=== PATIENT | female | born 1965 | race Caucasian/White ===

== ENCOUNTER 2017-03-15 01:06 | Emergency (ER) | payer OTHER ==
[~2017-03-15] VITALS: Ht 162.6 cm; Wt 122.5 kg
[~2017-03-15 01:06] MED LIST: DARVOCET PO; ULTRACET TABLET1 TAB PO
[2017-03-15 01:51] LABS: ABSOLUTE NEUTROPHILS 5.5 thou/uL (1.4-8.2); BASOPHILS 1.4 % (0.0-2.0); EOSINOPHILS 5.5 % (0.0-3.0); HEMATOCRIT 31.9 % (37.0-47.0); HEMOGLOBIN 10.5 gm/dL (12.0-15.0); LYMPHOCYTES 23.1 % (24.0-44.0); MCH 29.5 pg (26.0-34.0); MCHC 32.9 g/dL (28.0-37.0); MCV 89.6 fL (80.0-100.0); MONOCYTES 8.9 % (1.0-8.0); PLATELET COUNT 342 thou/uL (150-400); POLYS 61.1 % (36.0-66.0); RBC 3.56 mil/uL (4.20-5.00); RDW 12.6 % (10.5-14.5)
[2017-03-15 01:52] LABS: MANUAL DIFF NO
[2017-03-15 02:00] LABS: CALCIUM 8.9 mg/dL (8.5-10.1); CREATININE 0.7 mg/dL (0.6-1.0); POTASSIUM 3.8 mmol/L (3.5-5.1)
[2017-03-15] MEDS ORDERED: TYLENOL325 MG PO (04:10)
[2017-03-15] MEDS ORDERED: LIPITOR10 MG PO (04:10)
[2017-03-15] MEDS ORDERED: VITAMIN D1000 UNI1 PO (04:11)
[2017-03-15] MEDS ORDERED: Q SORB CO Q PO (04:11)
[2017-03-15] MEDS ORDERED: COLACE100 MG PO (04:11)
[2017-03-15] MEDS ORDERED: CYMBALTA60 MG PO (04:12)
[2017-03-15] MEDS ORDERED: ENOXAPARIN40 MG/0.1 SUBQ (04:12)
[2017-03-15] MEDS ORDERED: OXYCONTIN20 M1 PO (04:13)
[2017-03-15] MEDS ORDERED: LEVOTHYROXINE100 MC1 PO (04:13)
[2017-03-15] MEDS ORDERED: FISH OIL 1,001000 M2 PO (04:13)
[2017-03-15] MEDS ORDERED: MILK OF MA2400 MG/10 PO (04:14)
[2017-03-15] MEDS ORDERED: OXYCODONE HCL10 MG PO (04:14)
[2017-03-15 05:02] VITALS: BP 121/62
== END 2017-03-15 05:06 | disposition short-term general hospital (02) ==
LOC: ER 01:06
PROVIDERS: Emergency Medicine
DX: T81.4XXA Infection following a procedure, initial encounter (principal); F10.99 Alcohol use, unspecified with unspecified alcohol-induced disorder; Y83.9 Surgical procedure, unspecified as the cause of abnormal reaction of the patient, or of later complication, without mention of misadventure at the time of the procedure; Y92.89 Other specified places as the place of occurrence of the external cause